=== PATIENT | female | born 1965 | race Caucasian/White ===

== ENCOUNTER 2018-04-01 18:51 | Emergency (ER) | payer BC ==
[2018-04-01] MEDS ORDERED: MORPHINE 4 MG/ML SYR ONE (19:38)
[2018-04-01] MEDS ORDERED: MAGNE/ALUM HYDROXD 30 ML UCUP ONE (19:38)
[2018-04-01] MEDS ORDERED: FAMOTIDINE 20 MG/2 ML VIAL IV ONE (19:39)
[2018-04-01] MEDS ORDERED: NA CHLORIDE 0.9% 1,000 ML ONE (19:39)
[2018-04-01] MEDS ORDERED: ONDANSETRON 4 MG/2 ML VIAL ONE (19:39)
[2018-04-01] MEDS ORDERED: LIDOCAINE VISCOUS 2% SOLN 15 ML UDC ONE (19:39)
[2018-04-01 20:06] LABS: Absolute Lymphocytes (CBC) 3.1 K/uL (0.7-4.9); Absolute Monocytes 0.5 K/uL (0.1-1.3); Absolute Neutrophil 6.5 K/uL (1.8-8.0); Basophils % 0.8 % (0-1.3); Eosinophils % 1.2 % (0-4.4); Hematocrit 43.3 % (36.0-45.0); Lymphocytes % 29.9 % (15.3-44.8); MPV 9.1 fL (7.6-11.3); Monocytes % 5.2 % (3.3-12.3); RBC Red Blood Cell Count 4.75 M/uL (3.86-4.86)
[2018-04-01 20:17] LABS: ALT/SGPT 20 U/L (12-78); AST/SGOT 16 U/L (15-37); Albumin 3.5 g/dL (3.4-5.0); Alkaline Phosphatase 89 U/L (45-117); BUN Blood Urea Nitrogen 22 mg/dL (7-18); Bicarbonate 21 mmol/L (21-32); Bilirubin Direct < 0.1 mg/dL (0-0.2); Bilirubin Total 0.2 mg/dL (0.2-1.0); Glucose Level 92 mg/dL (74-106); Lipase 230 U/L (73-393); Protein, Total 7.2 g/dL (6.4-8.2); Sodium Level 141 mmol/L (136-145)
--- NOTE | 2018-04-01 20:53 | RAD REPORT ---
EXAM DESCRIPTION: CTAbdomen Pelvis W Contrast - 04/01/2018 8:34 pm CLINICAL HISTORY: Abdominal pain. ABD PAIN COMPARISON: <Comparisons> TECHNIQUE: Biphasic CT imaging of the abdomen and pelvis was performed with 100 ml non-ionic IV cont rast. All CT scans are performed using dose optimization technique as appropriate and may include automated exposure control or mA/KV adjustment according to patient size. FINDINGS: The lung bases are clear. The liver, spleen, pancreas, adrenal glands are within normal limits. Small caliceal stones are prese nt in both kidneys. No bowel obstruction, free air, free fluid or abscess. Several thickened small bowel loops are presen t in the left upper quadrant. Aortoiliac atherosclerosis. The appendix is normal. Aortoiliac atherosc lerosis. No evidence of significant lymphadenopathy. No suspicious bony findings. Proximal right femoral hardware. IMPRESSION: Several thickened small bowel loops are present in the left upper quadrant, which may in dicate a nonspecific enteritis. Punctate bilateral caliceal stones.
--- NOTE | 2018-04-01 21:29 | ER ---
Nurse's Notes [facility] Name: Amanda Lomas Age: 53 yrs Sex: Female : 1965 Arrival Date: 04/01/2018 Time: 18:53 Bed 15 Private MD: Tulio Singh E Diagnosis: Left sided colitis Presentation: 04/01 18:55 Presenting complaint: Patient states: epigastric pain, pain is worse with eating or sv drinking x2 weeks. Transition of care: patient was not received from another setting of care. Onset of symptoms was March 2018. Care prior to arrival: None. 18:55 Method Of Arrival: Ambulatory sv 18:55 Acuity: PASTOR 3 sv Historical: - Allergies: 18:56 Imitrex; sv 18:56 Sulfa (Sulfonamide Antibiotics); sv - PMHx: 18:56 Anxiety; Kidney stones; neck pain and back pain; Pneumonia; sv - PSHx: 18:56 ; Hysterectomy; Lithotripsy; R hip will from fx; sv - Social history:: Patient uses alcohol, on a daily basis. Patient/guardian denies using street drugs, IV drugs, The patient lives with family. Screenin:30 Abuse screen: Denies threats or abuse. Denies injuries from another. Nutritional aa1 screening: No deficits noted. Tuberculosis screening: No symptoms or risk factors identified. Fall Risk None identified. Assessment: 19:30 General: Appears in no apparent distress. comfortable, Behavior is calm, cooperative, aa1 appropriate for age. Pain: Complains of pain in diaphragm and epigastric area Quality of pain is described as aching, dull, Pain began 2 weeks ago Is intermittent. Neuro: Level of Consciousness is awake, alert, obeys commands, Oriented to person, place, time, situation, Moves all extremities. Full function Speech is normal. Cardiovascular: Denies chest pain, palpitations, shortness of breath, Heart tones S1 S2 present Rhythm is regular. Respiratory: Airway is patent Respiratory effort is even, unlabored, Respiratory pattern is regular, symmetrical. GI: Abdomen is non-distended, Bowel sounds present X 4 quads. Abd is soft X 4 quads Reports upper abdominal pain, epigastric pain, nausea, vomiting. EENT: No signs and/or symptoms were reported regarding the EENT system. Derm: Skin is intact, is healthy with good turgor, Skin is pink, warm \T\ dry. Musculoskeletal: Circulation, motion, and sensation intact. Capillary refill < 3 seconds. 21:20 Reassessment: Patient appears in no apparent distress at this time. Patient and/or aa1 family updated on plan of care and expected duration. Pain level reassessed. Patient is alert, oriented x 3, equal unlabored respirations, skin warm/dry/pink. MD at bedside discussing results with pt \T\ spouse. 21:40 Reassessment: Patient appears in no apparent distress at this time. Patient is alert, aa1 oriented x 3, equal unlabored respirations, skin warm/dry/pink. Discussed d/c \T\ f/u instructions with pt \T\ spouse; denies questions or concerns at this time. Vital Signs: 18:56 BP 126 / 90; Pulse 91; Resp 20; Temp 97.8(O); Pulse Ox 99% ; Weight 59.87 kg; Height 5 sv ft. 5 in. (165.10 cm); Pain 7/10; 20:15 BP 123 / 91; Pulse 70; Resp 18; Pulse Ox 95% on R/A; aa1 21:40 BP 125 / 89; Pulse 73; Resp 16; Temp 97.7; Pulse Ox 96% on R/A; Pain 0/10; aa1 18:56 Body Mass Index 21.97 (59.87 kg, 165.10 cm) sv ED Course: 18:53 Patient arrived in ED. sb2 18:54 Tulio Singh MD is Private Physician. sb2 18:56 Triage completed. sv 18:58 Arm band placed on. sv 19:13 Nora Duran MD is Attending Physician. ma2 19:26 Neva Gill, ALEJANDRO is Primary Nurse. aa1 19:29 Radiology exam delayed due to lab results not completed at this time. (BUN/Creatinine). vm2 19:30 Patient has correct armband on for positive identification. Placed in gown. Bed in low aa1 position. Call light in reach. Pulse ox on. NIBP on. 19:35 Initial lab(s) drawn, by me, sent to lab. Inserted saline lock: 20 gauge in right aa1 wrist, using aseptic technique. Blood collected. 19:56 Radiology exam delayed due to lab results not completed at this time. (BUN/Creatinine). vm2 20:[address] via wheelchair. vm2 20:28 CT completed. Patient tolerated procedure well. Patient moved back from CT. ia 20:35 CT Abd/Pelvis - W/Contrast: no po contrast please, wait for creatinine In Process EDMS Unspecified. 21:40 No provider procedures requiring assistance completed. IV discontinued, intact, aa1 bleeding controlled, No redness/swelling at site. Pressure dressing applied. Administered Medications: 19:33 Drug: GI Cocktail without - (Maalox Suspension 30 ml, Lidocaine Liquid 2 % 15 aa1 ml) Route: PO; 21:19 Follow up: Response: No adverse reaction; Marked relief of symptoms aa1 19:36 Drug: NS 0.9% 1000 ml Route: IV; Rate: 1 bolus; Site: right wrist; aa1 20:30 Follow up: IV Status: Completed infusion aa1 19:36 Drug: Zofran 4 mg Route: IVP; Site: right wrist; aa1 21:19 Follow up: Response: No adverse reaction; Nausea is decreased aa1 19:38 Drug: Pepcid 10 mg Route: IVP; Site: right wrist; aa1 21:19 Follow up: Response: No adverse reaction; Marked relief of symptoms aa1 19:40 Drug: morphine 4 mg Route: IVP; Site: right wrist; aa1 21:20 Follow up: Response: No adverse reaction; Pain is decreased aa1 21:45 Drug: Cipro 500 mg Route: PO; aa1 21:45 Follow up: Response: Medication administered at discharge. aa1 Outcome: 21:28 Discharge ordered by . in2 21:45 Discharged to home ambulatory, with significant other. aa1 21:45 Condition: good 21:45 Discharge instructions given to patient, significant other, Instructed on discharge instructions, follow up and referral plans. medication usage, Demonstrated understanding of instructions, follow-up care, medications, Prescriptions given X 3. 21:46 Patient left the ED. aa1 Signatures: Dispatcher [employer] EDMS Jessica Orozco RN Neva Mckeon RN RN aa1 Jg Correa Victoria 2 Nora Duran MD MD ma2 Lori Butler Sterling
--- NOTE | 2018-04-01 21:29 | EDPHYS ---
Physician Documentation [facility] Name: Amanda Lomas Age: 53 yrs Sex: Female : 1965 Arrival Date: 04/01/2018 Time: 18:53 Bed 15 Private MD: Tulio Singh E ED Physician Nora Duran HPI: 04/01 19:25 This 53 yrs old Female presents to ER via Ambulatory with complaints of ma2 Abdominal Pain, Nausea. 19:25 The patient presents to the emergency department with nausea, vomiting. ma2 19:35 Onset: The symptoms/episode began/occurred gradually, 1 day(s) ago. Possible causes: ma2 unknown. Associated signs and symptoms: Pertinent positives: abdominal pain, Pertinent negatives: dysuria, flatulence, hematuria. Severity of symptoms: At their worst the symptoms were moderate in the emergency department the symptoms are unchanged. The patient has not experienced similar symptoms in the past. Historical: - Allergies: 18:56 Imitrex; sv 18:56 Sulfa (Sulfonamide Antibiotics); sv - PMHx: 18:56 Anxiety; Kidney stones; neck pain and back pain; Pneumonia; sv - PSHx: 18:56 ; Hysterectomy; Lithotripsy; R hip will from fx; sv - Social history:: Patient uses alcohol, on a daily basis. Patient/guardian denies using street drugs, IV drugs, The patient lives with family. ROS: 19:35 Constitutional: Negative for fever, chills, and weight loss. ma2 19:35 Abdomen/GI: Positive for abdominal pain, Negative for nausea, vomiting, abdominal cramps, rectal bleeding, bowel incontinence. 19:35 All other systems are negative. Exam: 19:35 Constitutional: This is a well developed, well nourished patient who is awake, alert, ma2 and in no acute distress. Chest/axilla: Normal chest wall appearance and motion. Nontender with no deformity. No lesions are appreciated. Cardiovascular: Regular rate and rhythm with a normal S1 and S2. No gallops, murmurs, or rubs. Normal PMI, no JVD. No pulse deficits. Respiratory: Lungs have equal breath sounds bilaterally, clear to auscultation and percussion. No rales, rhonchi or wheezes noted. No increased work of breathing, no retractions or nasal flaring. MS/ Extremity: Pulses equal, no cyanosis. Neurovascular intact. Full, normal range of motion. Neuro: Awake and alert, GCS 15, oriented to person, place, time, and situation. Cranial nerves II-XII grossly intact. Motor strength 5/5 in all extremities. Sensory grossly intact. Cerebellar exam normal. Normal gait. 19:35 Abdomen/GI: Inspection: abdomen appears normal, Palpation: moderate abdominal tenderness, in the epigastric area, left upper quadrant and left lower quadrant, rebound tenderness, is not appreciated, Liver: no appreciated palpable abnormalities. Vital Signs: 18:56 BP 126 / 90; Pulse 91; Resp 20; Temp 97.8(O); Pulse Ox 99% ; Weight 59.87 kg; Height 5 sv ft. 5 in. (165.10 cm); Pain 7/10; 20:15 BP 123 / 91; Pulse 70; Resp 18; Pulse Ox 95% on R/A; aa1 21:40 BP 125 / 89; Pulse 73; Resp 16; Temp 97.7; Pulse Ox 96% on R/A; Pain 0/10; aa1 18:56 Body Mass Index 21.97 (59.87 kg, 165.10 cm) sv MDM: 19:13 [facility] 19:35 Differential diagnosis: gastritis, cholecystitis, pancreatitis, appendicitis, viral ma2 gastroenteritis, gastroenteritis. 21:28 Data reviewed: vital signs, nurses notes. Counseling: I had a detailed discussion with ma2 the patient and/or guardian regarding: the historical points, exam findings, and any diagnostic results supporting the discharge/admit diagnosis, the presence of at least one elevated blood pressure reading (>120/80) during this emergency department visit, the need for outpatient follow up. Response to treatment: the patient's symptoms have resolved after treatment. 04/01 19:25 Order name: Basic Metabolic Panel; Complete Time: 20:36 [facility] 04/01 19:25 Order name: CBC with Diff; Complete Time: 20:14 [facility] 04/01 19:25 Order name: Creatinine for Radiology; Complete Time: 20:36 [facility] 04/01 19:25 Order name: Hepatic Function; Complete Time: 20:36 [facility] 04/01 19:25 Order name: Lipase; Complete Time: 20:36 [facility] 04/01 19:25 Order name: CT Abd/Pelvis - W/Contrast: no po contrast please, wait for creatinine; ma2 Complete Time: 21:03 04/01 19:25 Order name: IV Saline Lock; Complete Time: 19:54 ma2 04/01 19:25 Order name: Labs collected and sent; Complete Time: 19:54 ma2 04/01 19:25 Order name: Urine Dipstick-Ancillary (obtain specimen); Complete Time: 21:20 ma2 Administered Medications: 19:33 Drug: GI Cocktail without - (Maalox Suspension 30 ml, Lidocaine Liquid 2 % 15 aa1 ml) Route: PO; 21:19 Follow up: Response: No adverse reaction; Marked relief of symptoms aa1 19:36 Drug: NS 0.9% 1000 ml Route: IV; Rate: 1 bolus; Site: right wrist; aa1 20:30 Follow up: IV Status: Completed infusion aa1 19:36 Drug: Zofran 4 mg Route: IVP; Site: right wrist; aa1 21:19 Follow up: Response: No adverse reaction; Nausea is decreased aa1 19:38 Drug: Pepcid 10 mg Route: IVP; Site: right wrist; aa1 21:19 Follow up: Response: No adverse reaction; Marked relief of symptoms aa1 19:40 Drug: morphine 4 mg Route: IVP; Site: right wrist; aa1 21:20 Follow up: Response: No adverse reaction; Pain is decreased aa1 21:45 Drug: Cipro 500 mg Route: PO; aa1 21:45 Follow up: Response: Medication administered at discharge. aa1 Disposition: 04/01/18 21:28 Discharged to Home. Impression: Left sided colitis. - Condition is Stable. - Discharge Instructions: Colitis. - Prescriptions for Tylenol- Codeine #3 300-30 mg Oral Tablet - take 2 tablet by ORAL route every 6 hours As needed; 30 tablet. Cipro 500 mg Oral Tablet - take 1 tablet by ORAL route every 12 hours for 7 days; 14 tablet. Pepcid 20 mg Oral Tablet - take 1 tablet by ORAL route once daily for 10 days; 10 tablet. - Medication Reconciliation Form, Thank You Letter, Antibiotic Education, Prescription Opioid Use form. - Follow up: Private Physician; When: Tomorrow; Reason: Continuance of care. Signatures: [facility] Jessica Gaytan, RN RN Neva Gill RN RN aa1 Nora Duran MD MD ma2 Corrections: (The following items were deleted from the chart) 21:46 21:28 04/01/2018 21:28 Discharged to Home. Impression: Left sided colitis. Condition is aa1 Stable. Forms are Medication Reconciliation Form, Thank You Letter, Antibiotic Education, Prescription Opioid Use. Follow up: Private Physician; When: Tomorrow; Reason: Continuance of care. ma2
[2018-04-01] MEDS ORDERED: CIPROFLOXACIN HCL 500 MG TAB ONE (21:52)
== END 2018-04-01 21:46 | disposition home or self-care (01) ==
LOC: ER 18:51
DX: K52.9 Noninfective gastroenteritis and colitis, unspecified (principal); Z88.2 Allergy status to sulfonamides; Z88.8 Allergy status to other drugs, medicaments and biological substances
CPT/HCPCS: 36415; 74177; 80048; 80076; 83690; 85025; 96361; 96374; 96375; 99284; J2405; J7030; Q9967